=== PATIENT | male | born 1955 | race Two or more races ===

== ENCOUNTER 2016-11-13 15:56 | Inpatient (IN) | payer MEDICAID, MEDICARE, OTHER ==
[~2016-11-13] VITALS: Ht 185.4 cm; Wt 76.1 kg
[2016-11-13 20:25] LABS: Basophils # (auto) 0 uL; Basophils % (auto) 0.5 % (0.0-2.0); Eosinophils # (auto) 0.1 uL; Eosinophils % (auto) 0.6 % (0.0-7.0); Hematocrit 48.3 % (41.0-53.0); Hemoglobin 15.9 g/dL (13.5-17.5); Lymphocytes # (auto) 2.2 uL; Lymphocytes % (auto) 23.2 % (10.0-50.0); Mean Corpuscular Hemoglobin 28.4 pg (28.0-32.0); Mean Corpuscular Hgb Conc. 32.8 g/dL (32.0-36.0); Mean Corpuscular Volume 86.5 fL (80.0-100.0); Mean Platelet Volume 9.6 fL (7.4-10.4); Monocytes # (auto) 0.7 uL; Monocytes % (auto) 7.1 % (0.0-12.0); Neutrophils # (auto) 6.5 uL; Neutrophils % (auto) 68.6 % (37.0-80.0); Platelet Count (auto) 164 10^3/uL (140-450); Red Cell Distribution Width 16.8 % (11.6-16.0); White Blood Cell 9.4 10^3/uL (4.4-10.8)
[2016-11-13 20:35] LABS: Albumin 3.5 g/dL (3.4-5.0); BUN/Creatinine Ratio 19.6; Bilirubin, Total 0.6 mg/dL (0.2-1.0); Calcium 8.4 mg/dL (8.5-10.1); Potassium 3.9 mmol/L (3.5-5.1); Total Protein 9.1 g/dL (6.4-8.2)
[2016-11-13] MEDS ORDERED: ACETAMINOPHEN 325 MG TAB PO PRN (23:30)
[2016-11-14 02:50] VITALS: BP 134/82
[2016-11-14 03:15] VITALS: BP 134/82
[2016-11-14 09:00] VITALS: BP 148/85
[2016-11-14] MEDS: ASPirin 81 mg TAB PO SCH (10:11)
[2016-11-14 13:00] VITALS: BP 126/77
[2016-11-14 17:00] VITALS: BP 124/82
[2016-11-14 20:00] VITALS: BP 115/73
[2016-11-14] MEDS ORDERED: HYDR-2651 PO (21:22)
[2016-11-14] MEDS ORDERED: GABA300C8 PO (21:22)
[2016-11-14] MEDS ORDERED: AMLO5TAB2 PO (21:22)
[2016-11-14] MEDS ORDERED: LOSA25TA9 PO (21:22)
[2016-11-14] MEDS ORDERED: POTA20TA53 PO (21:22)
[2016-11-14] MEDS: ATORVASTATIN 20 MG TAB PO SCH (22:04)
[2016-11-15 05:20] VITALS: BP 104/66
[2016-11-15 09:00] VITALS: BP 129/79
[2016-11-15] MEDS: ASPirin 81 mg TAB PO SCH (09:15)
[2016-11-15 13:00] VITALS: BP 97/57
[2016-11-15 17:16] VITALS: BP 136/85
[2016-11-15 20:00] VITALS: BP 119/75
[2016-11-15] MEDS: ATORVASTATIN 20 MG TAB PO SCH (21:38)
[2016-11-15 22:01] VITALS: BP 120/74
[2016-11-16 05:06] VITALS: BP 99/60
[2016-11-16 07:58] VITALS: BP 122/80
[2016-11-16 08:00] VITALS: BP 122/80
[2016-11-16] MEDS: ASPirin 81 mg TAB PO SCH (09:32)
[2016-11-16 12:16] VITALS: BP 112/59
[2016-11-16 17:09] VITALS: BP 128/77
[2016-11-16] MEDS: ATORVASTATIN 20 MG TAB PO SCH (21:40)
[2016-11-16 21:59] VITALS: BP 121/72
[2016-11-17] VITALS (7 sets, daily range): BP systolic 124–140; BP diastolic 72–84
[2016-11-17 06:53] LABS: Basophils # (auto) 0 uL; Basophils % (auto) 0.7 % (0.0-2.0); Eosinophils # (auto) 0.1 uL; Eosinophils % (auto) 1.5 % (0.0-7.0); Hematocrit 40.5 % (41.0-53.0); Hemoglobin 13.3 g/dL (13.5-17.5); Lymphocytes # (auto) 2.5 uL; Mean Corpuscular Hemoglobin 28.5 pg (28.0-32.0); Mean Corpuscular Hgb Conc. 32.8 g/dL (32.0-36.0); Mean Corpuscular Volume 86.7 fL (80.0-100.0); Mean Platelet Volume 10.1 fL (7.4-10.4); Monocytes # (auto) 0.6 uL; Neutrophils # (auto) 3.7 uL; Neutrophils % (auto) 52.8 % (37.0-80.0); Platelet Count (auto) 166 10^3/uL (140-450); Red Cell Distribution Width 16.7 % (11.6-16.0); White Blood Cell 6.9 10^3/uL (4.4-10.8)
[2016-11-17 07:04] LABS: BUN/Creatinine Ratio 32.3; Calcium 8.1 mg/dL (8.5-10.1); Magnesium 2.2 mg/dL (1.6-2.6); Phosphorus 3.3 mg/dL (2.5-4.90); Potassium 3.6 mmol/L (3.5-5.1)
[2016-11-17] MEDS: ASPirin 81 mg TAB PO SCH (10:08)
[2016-11-17] MEDS: ATORVASTATIN 20 MG TAB PO SCH (21:08)
[2016-11-18] VITALS (7 sets, daily range): BP systolic 123–155; BP diastolic 71–86
[2016-11-18] MEDS: ASPirin 81 mg TAB PO SCH (09:50)
[2016-11-18] MEDS ORDERED: ENOXAPARIN SOD 40 MG/0.4 ML SYRINGE SC ONE (10:30)
[2016-11-18] MEDS ORDERED: ATOR20TA50 PO (12:26)
[2016-11-18] MEDS ORDERED: ASPI81CH43 PO (12:26)
[2016-11-18] MEDS: ATORVASTATIN 20 MG TAB PO SCH (21:33)
[2016-11-18] MEDS: GABAPENTIN 300 MG CAP PO SCH (21:34)
[2016-11-19 05:27] VITALS: BP 130/74
[2016-11-19 08:00] VITALS: BP 127/71
[2016-11-19] MEDS: ASPirin 81 mg TAB PO SCH (09:28)
[2016-11-19] MEDS: ENOXAPARIN SOD 40 MG/0.4 ML SYRINGE SC SCH (10:00)
[2016-11-19] MEDS: amLODIPine BESYLATE 5 MG TAB PO SCH (10:30)
[2016-11-19 17:29] VITALS: BP 145/74
[2016-11-19 19:30] VITALS: BP 127/71
[2016-11-19 21:51] VITALS: BP 120/78
[2016-11-19] MEDS: ATORVASTATIN 20 MG TAB PO SCH (22:00)
[2016-11-19] MEDS: GABAPENTIN 300 MG CAP PO SCH (22:00)
[2016-11-20 04:54] VITALS: BP 104/66
[2016-11-20 09:00] VITALS: BP 117/75
[2016-11-20] MEDS: ASPirin 81 mg TAB PO SCH (10:05)
[2016-11-20] MEDS: amLODIPine BESYLATE 5 MG TAB PO SCH (10:06)
[2016-11-20] MEDS: ENOXAPARIN SOD 40 MG/0.4 ML SYRINGE SC SCH (10:06)
[2016-11-20 13:00] VITALS: BP 129/84
[2016-11-20 17:00] VITALS: BP 128/78
[2016-11-20 20:00] VITALS: BP 149/78
[2016-11-20 22:00] VITALS: BP 149/78
[2016-11-20] MEDS: GABAPENTIN 300 MG CAP PO SCH (22:26)
[2016-11-20] MEDS: ATORVASTATIN 20 MG TAB PO SCH (22:26)
[2016-11-21 05:00] VITALS: BP 130/76
[2016-11-21 09:00] VITALS: BP 128/77
[2016-11-21] MEDS: ASPirin 81 mg TAB PO SCH (09:54)
[2016-11-21] MEDS: amLODIPine BESYLATE 5 MG TAB PO SCH (09:55)
[2016-11-21] MEDS: ENOXAPARIN SOD 40 MG/0.4 ML SYRINGE SC SCH (09:55)
[2016-11-21 13:00] VITALS: BP 131/79
[2016-11-21 17:00] VITALS: BP 132/76
[2016-11-21 20:00] VITALS: BP 139/76
[2016-11-21] MEDS: GABAPENTIN 300 MG CAP PO SCH (21:25)
[2016-11-21] MEDS: ATORVASTATIN 20 MG TAB PO SCH (21:26)
[2016-11-21 22:00] VITALS: BP 139/76
[2016-11-22 05:30] VITALS: BP 105/67
[2016-11-22 08:00] VITALS: BP 104/76
[2016-11-22 09:00] VITALS: BP 104/76
[2016-11-22] MEDS: ASPirin 81 mg TAB PO SCH (11:00)
[2016-11-22] MEDS: ENOXAPARIN SOD 40 MG/0.4 ML SYRINGE SC SCH (11:01)
[2016-11-22] MEDS: amLODIPine BESYLATE 5 MG TAB PO SCH (11:01)
[2016-11-22 13:00] VITALS: BP 129/84
[2016-11-22 17:00] VITALS: BP 129/76
[2016-11-22 21:44] VITALS: BP 127/78
[2016-11-23] MEDS: ATORVASTATIN 20 MG TAB PO SCH ×2 (01:22→21:28)
[2016-11-23] MEDS: GABAPENTIN 300 MG CAP PO SCH ×2 (01:24→21:30)
[2016-11-23 05:01] VITALS: BP 99/65
[2016-11-23 08:00] VITALS: BP 123/73
[2016-11-23 09:00] VITALS: BP 123/73
[2016-11-23] MEDS: ENOXAPARIN SOD 40 MG/0.4 ML SYRINGE SC SCH (09:47)
[2016-11-23] MEDS: ASPirin 81 mg TAB PO SCH (09:48)
[2016-11-23] MEDS: amLODIPine BESYLATE 5 MG TAB PO SCH (09:49)
[2016-11-23 13:00] VITALS: BP 138/74
[2016-11-23 17:00] VITALS: BP 129/82
[2016-11-23 22:31] VITALS: BP 141/59
[2016-11-24 05:16] VITALS: BP 116/57
[2016-11-24 07:30] VITALS: BP 109/71
[2016-11-24 09:00] VITALS: BP 109/71
[2016-11-24] MEDS: ASPirin 81 mg TAB PO SCH (10:26)
[2016-11-24] MEDS: amLODIPine BESYLATE 5 MG TAB PO SCH (10:26)
[2016-11-24] MEDS: ENOXAPARIN SOD 40 MG/0.4 ML SYRINGE SC SCH (10:26)
[2016-11-24 13:00] VITALS: BP 111/81
[2016-11-24 17:00] VITALS: BP 143/79
== END 2016-11-24 20:00 | disposition hospice, home (50) | DRG 45 ==
LOC: ER 15:56 → OVERFLOW 15:57 → EAST 11-14 02:58
PROVIDERS: ADMIT Nurse Practitioner Acute Care; ATTEND Internal Medicine
DX: I63.9 Cerebral infarction, unspecified (principal); R53.2 Functional quadriplegia; I10 Essential (primary) hypertension; G81.91 Hemiplegia, unspecified affecting right dominant side; G81.94 Hemiplegia, unspecified affecting left nondominant side; R00.1 Bradycardia, unspecified; Z74.01 Bed confinement status; Z59.0 Homelessness
CPT/HCPCS: 36415; 80048; 80053; 83735; 84100; 85025; 87045; 87493; 87899; 93005